=== PATIENT | male | born 1950 | race Caucasian/White ===

== ENCOUNTER 2020-02-09 17:02 | Emergency (ER) | payer MEDICARE, MEDICAID ==
[~2020-02-09] VITALS: Ht 175.3 cm; Wt 104.0 kg
[2020-02-09 17:06] VITALS: BP 155/66
== END 2020-02-09 18:26 | disposition left against medical advice (07) ==
LOC: ER 17:02
DX: Z53.21 Procedure and treatment not carried out due to patient leaving prior to being seen by health care provider (principal); T82.119A Breakdown (mechanical) of unspecified cardiac electronic device, initial encounter; I10 Essential (primary) hypertension
CPT/HCPCS: 93005

== ENCOUNTER 2020-12-25 23:39 | Inpatient (IN) | payer MEDICARE, MEDICAID ==
[~2020-12-25] VITALS: Ht 170.2 cm; Wt 113.5 kg
[2020-12-25] MEDS ORDERED: IPRATROPIUM BROMIDE (0.02%) 0.5MG/2.5ML NEB HHN STA (23:41)
[2020-12-25] MEDS ORDERED: ONDANSETRON HCL 4MG/2ML INJ IV STA (23:41)
[2020-12-25] MEDS ORDERED: ALBUTEROL (0.083%) 2.5MG/3ML NEB HHN STA (23:41)
[2020-12-25] MEDS ORDERED: MORPHINE SULFATE 4 MG/ML CPJ (NOT FOR IM USE) IV STA (23:41)
[2020-12-25] MEDS ORDERED: PROPOFOL 10MG/ML 100ML 100 ML IV ONE (23:45)
[2020-12-25] MEDS ORDERED: ETOMIDATE 2MG/ML 10ML VIAL IV ONE (23:45)
[2020-12-25] MEDS ORDERED: FUROSEMIDE 40MG/4ML VIAL IV ONE (23:45)
[2020-12-25] MEDS ORDERED: SUCCINYLCHOLINE CHLORIDE 200MG/10ML IV ONE ×2 (23:45)
[2020-12-25] MEDS ORDERED: NITROGLYCERIN OINT 1GM/INCH UDPKT TD ONE (23:45)
[2020-12-25] MEDS ORDERED: MIDAZOLAM HCL 50 MG in DEXTROSE 5% WATER 40 ML IV ONE (23:45)
[2020-12-26] MEDS ORDERED: LABETALOL 5MG/ML SYR 20 MG/4 ML SYRINGE IV ONE
[2020-12-26 00:12] LABS: BASOPHILS % 0.2 % (0.0-2.0); EOSINOPHILS % 2.8 % (0.0-5.0); HEMATOCRIT. 47.1 % (42.0-52.0); HEMOGLOBIN. 15.6 g/dL (14.0-18.0); LYMPHOCYTES % 16.1 % (20.0-50.0); MEAN CORPUSCULAR VOLUME 84.2 fL (80.0-94.0); MEAN PLATELET VOLUME 8.8 fl (7.4-10.4); MONOCYTES % 8.3 % (2.0-8.0); NEUTROPHILS % 72.6 % (40.0-76.0); PLATELET 186 x1000/uL (130-400); RED BLOOD CELL COUNT 5.59 mill/uL (4.7-6.1); RED CELL DISTRIBUTION WIDTH 18.2 % (11.6-14.6)
[2020-12-26] MEDS ORDERED: MORPHINE SULFATE 2 MG/ML CPJ (NOT FOR IM USE) IV SCH (00:15)
[2020-12-26 00:16] LABS: BG BASE EXCESS -5.3 mmol/L (-2.0-2.0); BG CARBOXYHEMOGLOBIN 1.1 % (0.5-1.5); BG DEOXYHEMOGLOBIN 13.1 % (0.0-5.0); BG FRACTION INSPIRED OXYGEN 100; BG HCO3 ACT 20.3 mmol/L (22.0-26.0); BG OXYGEN SATURATION 86.8 % (92.0-98.5); BG OXYHEMOGLOBIN 85.8 % (94.0-97.0); BG PCO2 39.9 mmHg (35.0-45.0); BG PH 7.325 (7.350-7.450); BG PO2 58.3 mmHg (75.0-100.0); BG SAMPLE SITE RIGHT RADIAL; BG TOTAL HEMOGLOBIN 14.6 g/dL (12.0-18.0); BG VENT MODE MASK - NRB
[2020-12-26 00:18] LABS: CHLORIDE 111 mEq/L (98-107); D-DIMER 1.45 mg/L FEU (<0.50); PROTHROMBIN TIME 10.8 sec (9.6-11.0)
[2020-12-26] MEDS ORDERED: ONDANSETRON HCL 4MG/2ML INJ IV PRN (01:00)
[2020-12-26] MEDS ORDERED: HYDRALAZINE 20MG/ML VIAL IV PRN (01:00)
[2020-12-26] MEDS ORDERED: DIPHENHYDRAMINE 50MG/ML VIAL IV PRN (01:00)
[2020-12-26] MEDS ORDERED: ENOXAPARIN 40MG/0.4ML SYR SUBCUT SCH (01:00)
[2020-12-26] MEDS ORDERED: ACETAMINOPHEN 650MG SUPP PR PRN ×2 (01:00)
[2020-12-26] MEDS: NITROGLYCERIN OINT 1GM/INCH UDPKT TD SCH ×4 (02:00→18:57)
[2020-12-26] MEDS ORDERED: ENOXAPARIN 30MG/0.3ML SYR SUBCUT SCH (06:00)
[2020-12-26] MEDS: HYDRALAZINE HCL 100MG TABLET PO SCH ×3 (06:24→21:02)
[2020-12-26] MEDS: SODIUM CHLORIDE 0.9% INJ 3ML FLUSH IVF SCH ×3 (06:25→21:02)
[2020-12-26] MEDS ORDERED: FUROSEMIDE 40MG/4ML VIAL IVP SCH (09:00)
[2020-12-26] MEDS: AMLODIPINE 5MG TABLET PO SCH ×2 (09:49→20:56)
[2020-12-26] MEDS: POTASSIUM CHLORIDE 20MEQ TABLET SR PO SCH (09:50)
[2020-12-26] MEDS: FAMOTIDINE 20MG/2ML VIAL IV SCH ×2 (09:50→20:56)
[2020-12-26] MEDS: ENOXAPARIN 120MG/0.8ML SYR SUBCUT SCH (15:00)
[2020-12-26 16:10] VITALS: BP 154/81
[2020-12-26] MEDS ORDERED: SACU1TAB7 PO (17:37)
[2020-12-26] MEDS ORDERED: CARV25TA47 PO (17:37)
[2020-12-26] MEDS ORDERED: APIX2.5T PO (17:37)
[2020-12-26] MEDS: FUROSEMIDE 40MG/4ML VIAL IVP SCH (18:57)
[2020-12-26 20:00] VITALS: BP 137/75
[2020-12-26] MEDS: CARVEDILOL 6.25 MG TABLET PO SCH (20:56)
[2020-12-27] VITALS: BP 138/63
[2020-12-27] MEDS: NITROGLYCERIN OINT 1GM/INCH UDPKT TD SCH ×3 (01:00→12:18)
[2020-12-27] MEDS: ENOXAPARIN 120MG/0.8ML SYR SUBCUT SCH ×2 (03:00→16:34)
[2020-12-27 04:00] VITALS: BP 130/57
[2020-12-27] MEDS: SODIUM CHLORIDE 0.9% INJ 3ML FLUSH IVF SCH ×2 (06:15→14:00)
[2020-12-27] MEDS: HYDRALAZINE HCL 100MG TABLET PO SCH ×2 (06:15→16:34)
[2020-12-27] MEDS: FUROSEMIDE 40MG/4ML VIAL IVP SCH (06:15)
[2020-12-27 08:00] VITALS: BP 134/67
[2020-12-27] MEDS: FAMOTIDINE 20MG/2ML VIAL IV SCH (09:00)
[2020-12-27] MEDS: CARVEDILOL 6.25 MG TABLET PO SCH (10:00)
[2020-12-27] MEDS: POTASSIUM CHLORIDE 20MEQ TABLET SR PO SCH (10:00)
[2020-12-27] MEDS: AMLODIPINE 5MG TABLET PO SCH (10:00)
[2020-12-27] MEDS ORDERED: FAMOTIDINE 20MG TABLET PO SCH (11:00)
[2020-12-27 12:00] VITALS: BP 170/82
[2020-12-27 16:00] VITALS: BP 158/87
[2020-12-27 16:47] VITALS: BP 158/87
[2020-12-27] MEDS ORDERED: FUROSEMIDE 40MG TABLET PO SCH (21:00)
== END 2020-12-27 17:25 | disposition home or self-care (01) | DRG 280 ==
LOC: ER 23:39 → EDBD 12-26 05:48 → MICUSO 12-26 05:48 → EDBEDREQSVC 12-26 05:59 → EDBEDREQTM 12-26 05:59 → ENRESERV 12-26 07:05 → CANRESERV 12-26 07:05 → 6WST 12-26 18:41
PROVIDERS: ADMIT Internal Medicine; ATTEND Internal Medicine
DX: I11.0 Hypertensive heart disease with heart failure (principal); J96.01 Acute respiratory failure with hypoxia; I21.A1 Myocardial infarction type 2; I50.23 Acute on chronic systolic (congestive) heart failure; E87.2 Acidosis; I82.432 Acute embolism and thrombosis of left popliteal vein; N17.9 Acute kidney failure, unspecified; I42.0 Dilated cardiomyopathy; Z20.822 Contact with and (suspected) exposure to COVID-19; D72.829 Elevated white blood cell count, unspecified; E66.01 Morbid (severe) obesity due to excess calories; Z68.39 Body mass index [BMI] 39.0-39.9, adult; Z79.899 Other long term (current) drug therapy; Z82.49 Family history of ischemic heart disease and other diseases of the circulatory system; Z85.048 Personal history of other malignant neoplasm of rectum, rectosigmoid junction, and anus; Z87.891 Personal history of nicotine dependence; Z90.49 Acquired absence of other specified parts of digestive tract; Z92.21 Personal history of antineoplastic chemotherapy; Z92.3 Personal history of irradiation; Z93.3 Colostomy status; Z95.810 Presence of automatic (implantable) cardiac defibrillator
CPT/HCPCS: 36415; 36600; 71045; 78582; 80053; 82375; 82805; 83605; 83880; 84484; 85025; 85379; 93005; 93306; 93970; 99291; A9558; C1893; C9803; J1650; J1940; J2250; J2270; J2405; J3490; J7060; U0003; U0005